=== PATIENT | male | born 1990 | race Two or more races ===

== ENCOUNTER 2020-08-01 10:48 | Emergency (ER) | payer MEDICAID ==
[~2020-08-01] VITALS: Ht 175.3 cm; Wt 69.1 kg
[2020-08-01 11:01] VITALS: BP 138/79
== END 2020-08-01 12:05 | disposition home or self-care (01) ==
LOC: ER 10:49
DX: S21.3 Open wound of front wall of thorax with penetration into thoracic cavity (principal); Z48.02 Encounter for removal of sutures; J45.909 Unspecified asthma, uncomplicated; X78.8XXD Intentional self-harm by other sharp object, subsequent encounter
CPT/HCPCS: 99281

== ENCOUNTER 2020-09-02 12:05 | Emergency (ER) | payer MEDICAID ==
[~2020-09-02] VITALS: Ht 180.3 cm; Wt 72.7 kg
== END 2020-09-02 13:26 | disposition home or self-care (01) ==
LOC: ER 12:06
DX: R04.2 Hemoptysis (principal); R06.02 Shortness of breath; Z20.828 Contact with and (suspected) exposure to other viral communicable diseases; J45.909 Unspecified asthma, uncomplicated; F32.9 Major depressive disorder, single episode, unspecified
CPT/HCPCS: 36415; 71045; 87635; 99284